=== PATIENT | female | born 2000 | race African-American/Black ===

== ENCOUNTER 2025-02-28 10:56 | Observation (INO) | payer OTHER, SELFPAY ==
[2025-02-28 11:05] VITALS: BP 116/70; BMI 28.1
[2025-02-28] MEDS: DIFLUCAN 150 MG PO (11:58)
== END 2025-02-28 13:31 | disposition home or self-care (01) ==
LOC: LDRP 10:56
PROVIDERS: ADMITTING PHYSICIAN Obstetrics & Gynecology
DX: O98.813 Other maternal infectious and parasitic diseases complicating pregnancy, third trimester (principal); B37.31 Acute candidiasis of vulva and vagina; Z3A.35 35 weeks gestation of pregnancy
CPT/HCPCS: 76818; G0378

== ENCOUNTER → 2025-03-21 11:03 | Outpatient (REF) | payer OTHER, SELFPAY | LOC: PNTC 11:03 | PROVIDERS: ATTENDING PHYSICIAN Advanced Practice Midwife | DX: O26.849 Uterine size-date discrepancy, unspecified trimester (principal) | CPT/HCPCS: 36415; 76816; 86850; 86900; 86901 ==

== ENCOUNTER 2025-04-09 03:09 | Inpatient (IN) | payer OTHER, SELFPAY ==
[2025-04-09 03:16] VITALS: BP 127/80; BMI 27.8
[2025-04-09] MEDS: LR 1000 IV ×2 (03:30→10:43)
[2025-04-09 03:33] LABS: Hematocrit 35.1 % (37.0-47.0); Hemoglobin 11.8 g/dL (12.0-16.0); Mean Corp Hgb Conc. 33.6 g/dL (33.0-37.0); Mean Corpuscular Volume 81.8 fL (81.0-99.0); Nucleated Red Blood Cells % 0 %; Platelet Count 195 10^3/uL (130-400); Red Cell Dist. Width 13.2 % (11.5-14.5)
[2025-04-09] MEDS: PENICILLIN 110 UNITS IV (04:24)
[2025-04-09] MEDS: PENICILLIN 55 UNITS IV ×2 (07:59→11:57)
[2025-04-09] MEDS: PITOCIN 30 UNITS/NSS 500 ML IV ×2 (12:39→15:48)
[2025-04-09] MEDS: XYLOCAINE-MPF 1% VIAL 5 ML INFIL (15:53)
== END 2025-04-10 17:46 | disposition home or self-care (01) | DRG 807 ==
LOC: LDRP 03:09
PROVIDERS: ADMITTING PHYSICIAN Advanced Practice Midwife
PROC: 10E0XZZ Delivery of Products of Conception, External Approach (ICD-10-PCS; 2025-04-09)
PROC: 0HQ9XZZ Repair Perineum Skin, External Approach (ICD-10-PCS; 2025-04-09)
DX: O48.0 Post-term pregnancy (principal); Z37.0 Single live birth; Z3A.40 40 weeks gestation of pregnancy; O99.824 Streptococcus B carrier state complicating childbirth; O69.81X0 Labor and delivery complicated by cord around neck, without compression, not applicable or unspecified; O70.0 First degree perineal laceration during delivery
CPT/HCPCS: 85025; 86850; 86900; 86901